=== PATIENT | female | born 1990 | race Caucasian/White ===

== ENCOUNTER 2024-12-07 17:37 | Emergency (ER) | payer BC, SELFPAY ==
[2024-12-07 17:49] VITALS: BP 106/73
--- NOTE | 2024-12-07 21:18 | ED.GENMED ---
History of Present Illness
<Margarette Cheng PA-C - Last Filed: 12/07/24 22:42>
General
Chief Complaint: Musculo-Skeletal Complaint
Source: patient
Exam Limitations: none
Time Seen by Provider: 12/07/24 20:05
Nursing documentation reviewed up to this point in time: agreed with
History of Present Illness
History of Present Illness:
34-year-old female presenting to the emergency department for evaluation of finger injury. Patient states she accidentally closed the car door on her right index finger when she was dropping her son off at daycare. She describes a throbbing pain
in her right index finger. She then went into the daycare facility where she had a syncopal event. Patient believes this was likely secondary to the pain she was feeling as she became lightheaded/dizzy. Patient does have a history of this.
She denies any preceding chest pain, shortness of breath.
At this time�patient describes pain in her right index finger although otherwise states she is feeling well and denies any lightheadedness/dizziness.
Patient is up-to-date on her Tdap vaccine. No other concerns today.
Review of Systems
<Margarette Cheng PA-C - Last Filed: 12/07/24 22:42>
Review of Systems
Allergies reviewed?: Yes
All Other Systems: ROS reviewed and negative except as documented in HPI and ROS
Phy Exam
<Margarette Cheng PA-C - Last Filed: 12/07/24 22:42>
Physical Exam
Physical Exam:
Vitals: Patient's vital signs are stable. Afebrile
General: Patient is well appearing, no acute distress. Nontoxic appearing
Skin: Warm and dry, no rashes or lesions
Head: Normocephalic, atraumatic
Throat: Moist mucous membranes. Protecting airway
Neck: Normal ROM, no cervical spine tenderness
Cardiac: Regular rate and rhythm. No murmurs
Pulm: No apparent respiratory distress. Lungs clear bilaterally.
Abdomen: Nondistended
Extremities: Swelling and edema of distal phalanx of right second digit. Very small subungual hematoma of right second digit. No evidence of nailbed injury. Small abrasion to cuticle of affected finger. Full range of motion in right index finger
at DIP, PIP, and MCP joint. Capillary refill WNL. Sensation intact.
Neuro: Grossly intact
Psychiatric: Normal affect.
Course
<Margarette Cheng PA-C - Last Filed: 12/07/24 22:42>
Orders/Labs/Results
Orders:
Orders
12/07/24 17:54
CR Finger(s)/thumb Min 2 Vw Rt Urgent
Comment:
Reason For Exam: shut in car door
Indicate Which Finger:: Index Finger
12/07/24 21:26
Electrocardiogram (*1) Urgent
Reason for Study: Syncope
EKG- Treatment ONCE
Aluminium Finger Splint Right ONCE
12/07/24 22:15
Ibuprofen [Motrin] 400 mg PO NOW STA
Vital Signs
Initial and Last Documented VS:
Initial Vital Signs
Temp Pulse Resp BP Pulse Ox
98.2 F 72 16 106/73 100
12/07/24 17:49 12/07/24 17:49 12/07/24 17:49 12/07/24 17:49 12/07/24 17:49
Last Documented Vital Signs
Temp Pulse Resp BP Pulse Ox
98.2 F 70 18 111/76 99
12/07/24 17:49 12/07/24 21:30 12/07/24 21:30 12/07/24 21:30 12/07/24 21:30
<Phil Patel MD - Last Filed: 12/07/24 22:17>
Orders/Labs/Results
Orders:
Orders
12/07/24 17:54
CR Finger(s)/thumb Min 2 Vw Rt Urgent
Comment:
Reason For Exam: shut in car door
Indicate Which Finger:: Index Finger
12/07/24 21:26
Electrocardiogram (*1) Urgent
Reason for Study: Syncope
EKG- Treatment ONCE
Aluminium Finger Splint Right ONCE
12/07/24 22:15
Ibuprofen [Motrin] 400 mg PO NOW STA
Vital Signs
Initial and Last Documented VS:
Initial Vital Signs
Temp Pulse Resp BP Pulse Ox
98.2 F 72 16 106/73 100
12/07/24 17:49 12/07/24 17:49 12/07/24 17:49 12/07/24 17:49 12/07/24 17:49
Last Documented Vital Signs
Temp Pulse Resp BP Pulse Ox
98.2 F 70 18 111/76 99
12/07/24 17:49 12/07/24 21:30 12/07/24 21:30 12/07/24 21:30 12/07/24 21:30
<Margarette Cheng PA-C - Last Filed: 12/07/24 22:42>
MDM/Problems Addressed
Differential Diagnosis Includes:
Not limited to: Finger fracture, finger dislocation, subungual hematoma, vagal response, orthostatic hypotension, etc.
MDM/Problems Addressed:
34-year-old female presenting with injury to right index finger after shutting in a car door. She did sustain a syncopal event following this which I suspect to be a vagal response secondary to pain. No preceding chest pain, shortness of breath.
No other injury sustained. Vitals and physical exam as above. There is a small abrasion of second digit at cuticle with tenderness and swelling at distal phalanx. No nailbed injury. Very small subungual hematoma. X-ray shows transverse fracture
of distal phalanx of right second digit. Will plan to clean wound, placed finger splint. Ultimately�suspect syncopal episode likely secondary to vagal response to pain. However�will obtain EKG.
EKG shows normal sinus rhythm without any signs of ischemia or arrhythmia. Patient feels very well and is in no apparent distress. She denies any lightheadedness or dizziness.
Wound was cleaned thoroughly. Small amount of antibiotic ointment applied and bandage. Patient was placed in an aluminum finger splint and advised to follow-up with PCP in 2 weeks. Discussed ice, elevation, Tylenol/Motrin for pain. Advised to
monitor closely for signs of infection. Return precautions discussed. Patient seen with attending physician.
Chronic conditions affecting care:
N/A
Acute Exacerbation and/or Progression of Chronic Illness:
N/A
<Margarette Cheng PA-C - Last Filed: 12/07/24 22:42>
*Radiology
Radiology exam reviewed: preliminary read by ED provider (Transverse fracture of distal second digit) and radiology read reviewed
*Pulse Oximetry
Patient hypoxic: no
*EKG
Interpreted by ED Provider?: Yes
EKG Intrepretation Date: 12/07/24
Interpretation: normal
Comparison EKG: no comparison EKG present
Heart Rate: 84
Rate: normal
Rhythm: sinus
[place]: normal axis
Interval: normal interval
QRS Pattern: normal QRS
Ischemia: no ischemia
*[employer] Interpretation
Rate: [employer]- N/A
*Critical Care Note
Total Time (30-74mins, 75-104mins- exclusive of procedures): Not Applicable
ED Attending Note
<Margarette Cheng PA-C - Last Filed: 12/07/24 22:42>
-
Portions of this chart may have been created with voice recognition software.� Occasional wrong word or��sound alike� substitutions may have occurred due to the inherent limitations of voice recognition software.
<Phil Patel MD - Last Filed: 12/07/24 22:17>
ED Attending Note
Patient seen and examined by attending physician: Yes
I performed the substantive portion of visit, reviewed & personally made and approve the management plan that is documented in note by myself or KWESI.: Yes
ED Attending Note:
I have seen and evaluated the patient with a [id number] encounter. I have spoken to the [PA] and involved in the medical history, the physical exam, medical decision making.
Evaluation and management service: agree unless noted differently below.
Results interpretation: agree unless noted differently below.
Patient is a 34-year-old woman presenting to the emergency department with finger pain after shutting a car door on her finger. She states that she went inside to poultry picker her daughter and then had a syncopal event. She did get lightheaded dizzy.
She states that she passed out secondary to the pain. This has happened to her before. No chest pain shortness of breath palpitations. On exam patient with a very minimal subungual hematoma under the right index finger with some small skin tear
over the cuticle. No exposed bone. No nailbed involvement. Normal cap refill. She does have tenderness to the distal phalanx. X-ray per my interpretation consistent with distal phalanx fracture. Will place patient in splint and have patient
follow-up with primary care
Discharge Plan
Departure
Patient Disposition: Home (Routine Discharge)
Date of Disposition: 12/07/24
Time of Disposition: 22:03
Patient with high blood pressure during this ER visit?: No
Condition: Good
Discharge Problem:
Fracture of finger of right hand, Vasovagal syncope
Instructions: Vasovagal Response (DC), Finger Fracture ED
Referrals:
Bhargav Condon MD [Active] - Call in 1-3 days for appt
Activity Restrictions/Additional Instructions:
RETURN TO THE EMERGENCY DEPARTMENT WITH ANY INTRACTABLE PAIN, SIGNIFICANT REDNESS, PAIN, SWELLING OF AFFECTED FINGER, WITH NUMBNESS/TINGLING OF AFFECTED FINGER, WORSENING IN CURRENT SYMPTOMS, OR ANY OTHER CONCERNS
- As discussed�your x-ray of your right index finger showed a fracture. You were placed in a finger splint. You should keep this on until you are cleared by primary care. Continue to ice, elevate finger. Keep splint on for 3 to 6 weeks as
recommended by primary care. Take Tylenol and/or Motrin as needed for pain
- Please keep wound on finger clean and dry. Apply small amount of antibiotic ointment. Monitor closely for signs infection.
- Follow-up with primary care/orthopedics for further evaluation/management to ensure that symptoms are improving. Contact information has been provided for you above.
Monitor your symptoms closely and return to the emergency department with any acute worsening/new symptoms or any other concerns
Interventions
Interventions:
*Risk Screen - Suicide Last Done: 12/07/24 17:49
*General Assessment Last Done: 12/07/24 17:49
ED- Cardiac Assessment Last Done: 12/07/24 21:58
ED-Musculoskeletal Assessment Last Done: 12/07/24 21:58
ED- Neurological Assessment Last Done: 12/07/24 21:58
Discharge Date and Time
Print Language: [place]
[2024-12-07 21:30] VITALS: BP 111/76
[2024-12-07] MEDS: MOTRIN 400 MG PO (22:29)
== END 2024-12-07 22:56 | disposition home or self-care (01) ==
LOC: EMR 17:37
PROVIDERS: EMERGENCY PHYSICIAN Student in an Organized Health Care Education/Training Program
DX: S62.630A Displaced fracture of distal phalanx of right index finger, initial encounter for closed fracture (principal); R55 Syncope and collapse; W23.0XXA Caught, crushed, jammed, or pinched between moving objects, initial encounter
CPT/HCPCS: 99283; 73140; 93005